=== PATIENT | female | born 2000 | race Caucasian/White ===

== ENCOUNTER 2024-03-09 00:22 | Emergency (ER) | payer SELFPAY ==
--- NOTE | 2024-03-09 00:40 | ER ---
Nurse's Notes [facility] Name: Darcy Callaway Age: 24 yrs Sex: Female : 2000 Arrival Date: 03/09/2024 Time: 00:22 Bed 11 Private MD: Diagnosis: Tinea corporis Presentation: 03/09 00:31 Chief complaint: Patient states: RASH ON THE RIGHT LOWER LEG, POSSIBLE RING WORM. ha1 00:31 Coronavirus screen: At this time, the client does not indicate any symptoms associated ha1 with coronavirus-19. Ebola Screen: No symptoms or risks identified at this time. Initial Sepsis Screen: Does the patient meet any 2 criteria? No. Patient's initial sepsis screen is negative. Does the patient have a suspected source of infection? No. Patient's initial sepsis screen is negative. Risk Assessment: Do you want to hurt yourself or someone else? Patient reports no desire to harm self or others. Onset of symptoms was March 09, 2024. 00:31 Method Of Arrival: Ambulatory ha1 00:31 Acuity: GERALD 5 ha1 Triage Assessment: 00:31 General: Appears comfortable, Behavior is calm, cooperative. Pain: Denies pain. Neuro: ha1 Level of Consciousness is awake, alert, obeys commands, Oriented to person, place, time, situation. Cardiovascular: Capillary refill < 3 seconds Patient's skin is warm and dry. Respiratory: Airway is patent Respiratory effort is even, unlabored, Respiratory pattern is regular, symmetrical. GI: No signs and/or symptoms were reported involving the gastrointestinal system. Abdomen is round non-distended. Derm: Rash noted that is itchy, ROUND SHAPE Reports itching. Musculoskeletal: Circulation, motion, and sensation intact. Range of motion: intact in all extremities. Historical: - Allergies: 01:00 No Known Allergies; ha1 - PMHx: 01:00 None; ha1 - Immunization history:: Adult Immunizations up to date. - Infectious Disease History:: Denies. - Social history:: Smoking status: unknown. - Family history:: not pertinent. Screenin:03 [facility] ED Fall Risk Assessment (Adult) History of falling in the last 3 months, ha1 including since admission No falls in past 3 months (0 pts) Confusion or Disorientation No (0 pts) Intoxicated or Sedated No (0 pts) Impaired Gait No (0 pts) Mobility Assist Device Used No (0 pt) Altered Elimination No (0 pt) Score/Fall Risk Level 0 - 2 = Low Risk Oriented to surroundings, Maintained a safe environment, Educated pt \T\ family on fall prevention, incl call for assistance when getting out of bed, Hourly rounding (assess needs \T\ fall precautionary measures) done. Abuse screen: Denies threats or abuse. Denies injuries from another. Nutritional screening: No deficits noted. Tuberculosis screening: No symptoms or risk factors identified. Vital Signs: 00:37 BP 120 / 95 RA Sitting (auto/reg); Pulse 78; Resp 16; Temp 98.7; Pulse Ox 100% ; Weight ty 90.72 kg; Height 5 ft. 2 in. ; Pain 0/10; 00:37 Body Mass Index 36.58 (90.72 kg, 157.48 cm) ty 00:37 Pain Scale: Adult ty ED Course: 00:24 Patient arrived in ED. [email or web address] 00:25 Jack Galdamez MD is Attending Physician. rt 00:31 Arm band placed on right wrist. ha1 00:37 Patient has correct armband on for positive identification. Bed in low position. Call ty light in reach. Side rails up X 1. Lights dimmed. Moved to private room. Client placed on continuous cardiac and pulse oximetry monitoring. NIBP monitoring applied. 01:00 Triage completed. ha1 01:03 No provider procedures requiring assistance completed. Patient did not have IV access ha1 during this emergency room visit. 01:05 Justine Corcoran RN is Primary Nurse. ha1 01:06 Provided Education on: MEDICATION ADMINISTRATION . ha1 Administered Medications: No medications were administered Medication: 01:06 VIS not applicable for this client. ha1 Outcome: 00:40 Discharge ordered by . rt 01:06 Discharged to home ambulatory, ha1 01:06 Condition: stable 01:06 Discharge instructions given to patient, Instructed on discharge instructions, follow up and referral plans. medication usage, Demonstrated understanding of instructions, follow-up care, medications, Prescriptions given X 1, 01:07 Patient left the ED. ha1 Signatures: Mary Choudhary [email or web address] Justine Corcoran RN RN ha1 Jack Galdamez MD MD rt Charly Hurtado
--- NOTE | 2024-03-09 00:40 | EDPHYS ---
Physician Documentation [facility] Name: Darcy Callaway Age: 24 yrs Sex: Female : 2000 Arrival Date: 03/09/2024 Time: 00:22 Bed 11 Private MD: ED Physician Jack Galdamez HPI: 03/09 01:24 This 24 yrs old Female presents to ER via Ambulatory with complaints of Rash, POSSIBLE rt RING WORM. 01:24 Patient presents to the ED with 3 days of rash consistent with ringworm. It is on her rt left leg, left shoulder. States it is mildly itchy. Denies other acute complaints at this time, symptoms are mild in severity, no other aggravating or alleviating factors.. Historical: - Allergies: 01:00 No Known Allergies; ha1 - PMHx: 01:00 None; ha1 - Immunization history:: Adult Immunizations up to date. - Infectious Disease History:: Denies. - Social history:: Smoking status: unknown. - Family history:: not pertinent. ROS: 01:24 Constitutional: Negative for fever, chills, and weight loss, Cardiovascular: Negative rt for chest pain, palpitations, and edema, Respiratory: Negative for shortness of breath, cough, wheezing, and pleuritic chest pain, Abdomen/GI: Negative for abdominal pain, nausea, vomiting, diarrhea, and constipation, 01:24 Skin: Positive for rash, Negative for cellulitis, Exam: 01:24 Constitutional: This is a well developed, well nourished patient who is awake, alert, rt and in no acute distress. Head/Face: Normocephalic, atraumatic. Chest/axilla: Normal chest wall appearance and motion. Nontender with no deformity. No lesions are appreciated. Cardiovascular: Regular rate and rhythm with a normal S1 and S2. No gallops, murmurs, or rubs. Normal PMI, no JVD. No pulse deficits. Respiratory: Lungs have equal breath sounds bilaterally, clear to auscultation and percussion. No rales, rhonchi or wheezes noted. No increased work of breathing, no retractions or nasal flaring. Abdomen/GI: Soft, non-tender, with normal bowel sounds. No distension or tympany. No guarding or rebound. No evidence of tenderness throughout. 01:24 Skin: Rash consistent with tinea corporis noted.. Vital Signs: 00:37 BP 120 / 95 RA Sitting (auto/reg); Pulse 78; Resp 16; Temp 98.7; Pulse Ox 100% ; Weight ty 90.72 kg; Height 5 ft. 2 in. ; Pain 0/10; 00:37 Body Mass Index 36.58 (90.72 kg, 157.48 cm) ty 00:37 Pain Scale: Adult ty MDM: 00:36 Medical Screening Exam initiated rt 01:24 Differential diagnosis: Tinea, cellulitis. Data reviewed: vital signs, nurses notes. rt Counseling: I had a detailed discussion with the patient and/or guardian regarding the historical points, exam findings, and any diagnostic results supporting the discharge/admit diagnosis, the need for outpatient follow up, to return to the emergency department if symptoms worsen or persist or if there are any questions or concerns that arise at home. Administered Medications: No medications were administered Disposition Summary: 03/09/24 00:40 Discharge Ordered Notes: Location: Home rt Problem: new rt Symptoms: are unchanged rt Condition: Stable rt Diagnosis - Tinea corporis rt Followup: rt - With: Private Physician - When: 2 - 3 days - Reason: Discharge Instructions: - Discharge Summary Sheet rt - Body Ringworm rt Forms: - Medication Reconciliation Form rt - Antibiotic Education rt - Prescription Opioid Use rt - Patient Portal Instructions rt - Leadership Thank You Letter rt Prescriptions: - Nystatin-Triamcinolone 100,000-0.1 unit/gram-% Topical ointment - apply 1 application TOPICAL route 2 times per day; 1 unit; Refills: 0, Product rt Selection Permitted Signatures: Justine Corcoran RN RN ha1 Jack Galdamez MD MD rt
[2024-03-09 08:28] VITALS: BP 120/95; TEMP 98.7; O2SAT 100
== END 2024-03-09 01:07 | disposition home or self-care (01) ==
LOC: ER 00:22
DX: B35.4 Tinea corporis (principal)
CPT/HCPCS: 99283